=== PATIENT | male | born 1995 | race Caucasian/White ===

== ENCOUNTER 2017-12-05 19:37 | Emergency (ER) | payer OTHER ==
[~2017-12-05] VITALS: Ht 177.8 cm; Wt 59.0 kg
[~2017-12-05 19:37] MED LIST: AUGMENTIN 875-1 EACH PO; IBUPROFEN800 M1 PO
[2017-12-05 19:45] VITALS: BP 130/72
--- NOTE | 2017-12-05 19:52 | ED UPPER/LOWER EXTREMITY COMPL ---
History of Present Illness General Chief Complaint: Suture Removal/Wound Recheck Stated Complaint: SUTURE REMOVAL Source: patient Exam Limitations: no limitations Vital Signs & Intake/Output Vital Signs & Intake/Output Vital Signs Date Time Temp Pulse Resp B/P B/P Pulse O2 O2 Flow FiO2 Mean Ox Delivery Rate 12/05 1945 97.4 64 18 130/72 98 Room Air ED Intake and Output 12/06 0000 12/05 1200 Intake Total Output Total Balance Patient 130 lb Weight Weight Reported by Patient Measurement Method Allergies Coded Allergies: No Known Allergies (11/28/17) Reconcile Medications Amoxicillin/Potassium Clav (Augmentin 875-125 Tablet) 875 MG-125 MG TABLET 1 TAB PO BID infection prevention Ibuprofen 800 MG TABLET 1 TAB PO TID PRN pain Triage Note: PT TO ER FOR SUTURE REMOVAL TO RIGHT THUMB. Triage Nurses Notes Reviewed? yes Onset: Gradual Duration: day(s): Timing: recent history Severity: mild Pain/Injury Location: Right: Hand. HPI: 21 yo gentleman presents for suture removal. He has stitches placed after being bitten his dog 7 days ago. He tolerated the antibiotics well. He notes the wound has healed well. He is able to move his fingers without problem. He is otherwise well. Past History Travel History Traveled to [place] past 21 day No Medical History Any Pertinent Medical History? see below for history Tetanus Vaccine: 11/28/17 Surgical History Surgical History: none Psychosocial History What is your primary language Cypriot Tobacco Use: Never used Family History Hx Contributory? No Review of Systems Review of Systems Constitutional: Denies: no symptoms, see HPI. EENTM: Reports: no symptoms. Respiratory: Reports: no symptoms. Cardiovascular: Reports: no symptoms. Gastrointestinal/Abdominal: Reports: no symptoms. Genitourinary: Reports: no symptoms. Musculoskeletal: Reports: no symptoms. Skin: Reports: no symptoms. Neurological/Psychological: Reports: no symptoms. Hematologic/Endocrine: Reports: no symptoms. Immunological: Reports: no symptoms. All Other Systems: Reviewed and Negative Physical Exam Physical Exam General Appearance: well developed/nourished, mild distress Head: atraumatic Ears, Nose, Throat: normal pharynx, normal ENT inspection Hand Right: right thumb with well-healed laceration. No sign of infection Progress Differential Diagnosis: laceration versus other Plan of Care: Sutures removed without problem. Steri-Strips placed. Close follow-up advised Departure Departure Disposition: HOME OR SELF CARE Condition: Stable Clinical Impression Primary Impression: Visit for suture removal Secondary Impressions: Encounter for wound care Referrals: Claudia Mcclure APRN (PCP/Family) Departure Forms: Customer Survey General Discharge Information
== END 2017-12-05 20:47 ==
LOC: ERH 19:37
DX: Z48.02 Encounter for removal of sutures (principal)